=== PATIENT | female | born 1960 | race Caucasian/White ===

== ENCOUNTER 2022-06-19 01:11 | Day surgery (SDC) | payer BC, SELFPAY ==
[2022-06-05 09:41] VITALS: BMI 39.2
--- NOTE | 2022-06-16 16:37 | PM.HPGS ---
History of Present Illness History of Present Illness Consent: Risks, benefits, and alternatives have been discussed and questions answered. Patient agrees to proceed with procedure. Chief complaint: hx colon polyps Narrative: Jennie Brumfield is a 61 year old female With a history of polyps. She had 3 polyps removed about 6 years ago, 1 of which was a tubular adenoma. Review of Systems Review of Systems: All systems reviewed & are unremarkable except as noted in HPI and below PMFSH Family History Family History Grandparent Diabetes mellitus Family history of cardiovascular disease Malignant neoplasm of prostate Family history of malignant neoplasm of brain Social History Social History Smoking status: Never smoker Second hand tobacco smoke exposure: No Alcohol intake: current Substance use: never Substance use type: does not use Living arrangements: with family Additional living arrangements comments: LIVES WITH SON Spiritual care concerns: No Meds Home Medications and Allergies Home Medications Medication Instructions Recorded Confirmed Type ergocalciferol (vitamin D2) 50,000 50,000 unit PO 2XW 10/15/19 06/05/22 History unit tablet oxybutynin chloride 5 mg 5 mg PO DAILY 10/15/19 06/05/22 History tablet,extended release 24 hr sertraline 100 mg tablet 100 mg PO DAILY 10/15/19 06/05/22 History Allergies Allergy/AdvReac Type Severity Reaction Status Date / Time Penicillins Allergy Intermediate Rash Verified 06/19/22 07:34 Exam Const: General: alert Orientation/consciousness: patient oriented x3 Resp: Auscultation: clear to auscultation bilaterally Cardio: Rhythm: regular rhythm GI: GI Palp: Yes Soft to palpation and No Tenderness to palpation present (GI) Neuro: General: patient oriented x3 Assessment and Plan Assessment and plan (1) Colon cancer screening: Code(s): Z12.11 - Encounter for screening for malignant neoplasm of colon Status: Acute Assessment and Plan: Colonoscopy with possible biopsy or polypectomy or cautery or injection of substances.
[2022-06-19 07:35] VITALS: BP 140/77; PULSE 79; RESP 18; TEMP 36.1; O2SAT 97
[2022-06-19] MEDS: LACTATED RINGERS 1,000 ML 150 ML IV CONT (07:46)
--- NOTE | 2022-06-19 08:19 | P.PNAN_ITS ---
Anes - Initial Pre Proc Eval Procedure: Operation Date: 06/19/22 09:00 Proposed Procedures p Screening Colonoscopy - Arturo Ochoa MD Date/Time: 06/19/22 08:19 Surgeon: Arturo Ochoa MD Pre Op Diagnosis: hx colon polyps Patient Data Age: 61 Gender: F Height: 1.7 m Weight: 120.9 kg Last Vital Signs Temp 97 F L 06/19/22 07:35 Pulse 79 06/19/22 07:35 Resp 18 06/19/22 07:35 BP 140/77 06/19/22 07:35 Pulse Ox 97 06/19/22 07:35 O2 Del Method Room Air 06/19/22 07:35 Allergies Allergy/AdvReac Type Severity Reaction Status Date / Time Penicillins Allergy Intermediate Rash Verified 06/19/22 07:34 Home Medications Medication Instructions Recorded Confirmed Type ergocalciferol (vitamin D2) 50,000 50,000 unit PO 2XW 10/15/19 06/05/22 History unit tablet oxybutynin chloride 5 mg 5 mg PO DAILY 10/15/19 06/05/22 History tablet,extended release 24 hr sertraline 100 mg tablet 100 mg PO DAILY 10/15/19 06/05/22 History Patient hx anesthesia problems: none Family hx anesthesia problems: none Results Review: All pre-operative results and documents have been reviewed as part of the pre-operative evaluation. [facility] Family History Family History Grandparent Diabetes mellitus Family history of cardiovascular disease Malignant neoplasm of prostate Family history of malignant neoplasm of brain Social History Social History Smoking status: Never smoker Second hand tobacco smoke exposure: No Alcohol intake: current Substance use: never Substance use type: does not use Living arrangements: with family Additional living arrangements comments: LIVES WITH SON Spiritual care concerns: No Anes - Eval Final PreProcedure Day of Procedure 06/19/22 08:19 Patient weight: morbidly obese Heart: regular rate and rhythm Lungs: clear to auscultation Airway: Mallampati scale class II Neurological: alert and oriented Last oral intake: >/= 8 hours ASA classification: III Emergent: no Anesthetic plan: proceed Anesthesia type and monitoring: general GIVS and standard monitoring Results Review: All pre-operative results and documents have been reviewed as part of the pre- operative evaluation. Informed Consent: The patient's anesthetic plan and its attendant risks and benefits were discussed with the patient/family/POA. Questions were solicited and answers provided to the satisfaction of the patient/family/POA.
[2022-06-19 08:41] VITALS: BP 133/79; PULSE 71; RESP 18; O2SAT 98
[2022-06-19 08:51] VITALS: BP 133/69; PULSE 76; RESP 22; O2SAT 100
[2022-06-19 09:01] VITALS: BP 141/69; PULSE 68; RESP 16; O2SAT 100
== END 2022-06-19 09:13 | disposition home or self-care (01) ==
PROVIDERS: PCP Family Medicine; Visit Provider Internal Medicine Gastroenterology
PROC: 0DJD8ZZ Inspection of Lower Intestinal Tract, Via Natural or Artificial Opening Endoscopic (ICD-10-PCS; CPT 45378; principal; 2022-06-19 09:00)
DX: Z12.11 Encounter for screening for malignant neoplasm of colon (principal); K64.8 Other hemorrhoids; K51.40 Inflammatory polyps of colon without complications; E66.01 Morbid (severe) obesity due to excess calories; Z68.41 Body mass index [BMI] 40.0-44.9, adult
CPT/HCPCS: 45380; 88305; J2704; J7120

== ENCOUNTER 2024-02-15 15:58 | Outpatient (CLI) | payer BC, SELFPAY ==
--- NOTE | ~2024-02-15 | XR_ITS ---
EXAM: XR shoulder RT min 2V DATE: 02/15/2024 16:36 HISTORY: M25.511 - Pain in right shoulder . COMPARISON: None available. FINDINGS: Decreased mineralization. No fracture or dislocation. No lytic or blastic lesion. Mild deg enerative changes in the AC joint and glenohumeral joint. Subacromial narrowing. No erosion or perios teal change. Soft tissues within normal limits. IMPRESSION: Mild polyarticular right shoulder osteoarthritis with additional findings that can accomp any rotator cuff pathology. Reviewed, dictated and finalized at location [facility]. IMPRESSION: Mild polyarticular right shoulder osteoarthritis with additional fi ndings that can accompany rotator cuff pathology.
== END 2024-02-15 15:59 ==
LOC: MICIMG 16:00
PROVIDERS: PCP Family Medicine; Visit Provider Student in an Organized Health Care Education/Training Program
DX: M19.011 Primary osteoarthritis, right shoulder (principal)
CPT/HCPCS: 73030

== ENCOUNTER 2024-04-21 07:00 | Outpatient (CLI) | payer BC, SELFPAY ==
--- NOTE | ~2024-04-21 | MR_ITS ---
MRI of the right shoulder Technique: Axial proton-density fat-sat images, coronal proton density fat-sat and T2 fat-sat images, and sagittal T1-weighted and T2 fat-sat images were acquired. Clinical History: Rotator cuff tear Findings: There is minimal AC joint degenerative change. Coracoclavicular, coracoacromial, and coraco humeral ligaments are intact. There is complete, full-thickness tear involving the entirety of the supraspinatus tendon. Tear may e xtend to involve the anterior most fibers of the infraspinatus tendon. Fluid-filled gap measures appr oximately 4.2 x 3.1 cm in extent. Subscapularis tendon is intact with severe tendinosis. Tendon of th e long head of biceps is intact with probable severe intra-articular tendinosis. There is probable degenerative attenuation of the posterior labrum. There is advanced degenerative change focally at the posterior aspect of the glenohumeral joint, with subchondral cystic change and high-grade chondromalacia at the posterior aspect of the glenoid. Smal l inferomedial humeral head osteophyte present. Inferior glenohumeral ligament is intact. There is a small glenohumeral joint effusion, with fluid passing through the rotator cuff defect into the subacr omial/subdeltoid bursa. Possible small loose bodies in the subacromial/subdeltoid bursa. Probable mil d fatty atrophy of the infraspinatus muscle belly. Impression: Complete, full-thickness tear of the supraspinatus tendon, possibly involving the anterior portion of the infraspinatus tendon, as detailed above. Background rotator cuff tendinosis, as detailed above. Mild fatty atrophy of the infraspinatus muscle belly. Degenerative change of the glenohumeral joint, as detailed above. Possible small loose bodies in the subacromial/subdeltoid bursa. Minimal AC joint degenerative change. Probable degenerative attenuation of the posterior labrum. Reviewed, dictated and finalized at location . Impression: Complete, full-thickness tear of the supraspinatus tendon, possibly involving t he anterior portion of the infraspinatus tendon, as detailed above. Background rotator cuff tendinosis, as detailed above. Mild fatty atrophy of the infraspinatus muscle belly. Degenerative change of the glenohumeral joint, as detailed above. Possible smal l loose bodies in the subacromial/subdeltoid bursa. Minimal AC joint degenerative change. Probable degenerative attenuation of the posterior labrum.
== END 2024-04-21 07:01 ==
PROVIDERS: PCP Family Medicine; Visit Provider Orthopaedic Surgery
DX: M75.121 Complete rotator cuff tear or rupture of right shoulder, not specified as traumatic (principal); M62.511 Muscle wasting and atrophy, not elsewhere classified, right shoulder; M19.011 Primary osteoarthritis, right shoulder
CPT/HCPCS: 73221